=== PATIENT | female | born 1960 | race Caucasian/White ===

== ENCOUNTER 2018-11-24 01:56 | Emergency (ER) | payer MEDICARE ==
[~2018-11-24] VITALS: Ht 165.1 cm; Wt 55.8 kg
[2018-11-24 02:00] VITALS: Ht 165.1 cm; Wt 55.8 kg
[2018-11-24] MEDS ORDERED: SEROQUEL200 MG (02:02)
[2018-11-24] MEDS ORDERED: ULTRAM50 MG (02:02)
[2018-11-24] MEDS ORDERED: TRAZODONE HCL150 MG (02:02)
[2018-11-24] MEDS ORDERED: KEFLEX500 MG PO (02:59)
[2018-11-24 03:07] VITALS: BP 104/66
== END 2018-11-24 03:10 | disposition home or self-care (01) ==
LOC: D.ER 01:56
DX: S01.81XA Laceration without foreign body of other part of head, initial encounter (principal); W18.09XA Striking against other object with subsequent fall, initial encounter; Y93.89 Activity, other specified; Y92.019 Unspecified place in single-family (private) house as the place of occurrence of the external cause